=== PATIENT | female | born 1945 | race Caucasian/White ===

== ENCOUNTER 2017-09-04 06:04 | Day surgery (SDC) | payer MEDICARE, MEDICAID ==
[~2017-09-04] VITALS: Ht 144.8 cm; Wt 68.6 kg
[~2017-09-04 06:04] MED LIST: SODIUM CHLORIDE 0.9% 1,000 ML IV ONE
[2017-09-04] MEDS ORDERED: ALBUTEROL SULFATE 2.5 MG/0.5 ML NEB SOLUTION NEB ONE (06:05)
[2017-09-04] MEDS ORDERED: LIDOCAINE HCL 4% 50 ML SOLUTION TP ONE (06:05)
[2017-09-04] MEDS ORDERED: BENZOCAINE 20% 50 MCG/SPRAY 57 GM TP ONE (06:05)
[2017-09-04] MEDS ORDERED: LIDOCAINE HCL 2% 30 ML JELLY TP ONE (06:05)
[2017-09-04] MEDS ORDERED: SODIUM CHLORIDE 0.9% 1,000 ML IV ONE (06:30)
[2017-09-04] MEDS ORDERED: PRED10 PO (07:23)
[2017-09-04] MEDS ORDERED: OXYB5 PO (07:23)
[2017-09-04] MEDS ORDERED: TELM40 PO (07:23)
[2017-09-04] MEDS ORDERED: GABA-531 PO (07:32)
[2017-09-04] MEDS ORDERED: OMEP20 PO (07:32)
[2017-09-04] MEDS ORDERED: AMLO-511 PO (07:32)
[2017-09-04] MEDS ORDERED: SIMV-260 PO (07:32)
[2017-09-04] MEDS ORDERED: FLUT16H NASAL (07:32)
[2017-09-04] MEDS ORDERED: DOXY100C PO (07:32)
[2017-09-04] MEDS ORDERED: OXYM-48 NASAL (07:32)
[2017-09-04] MEDS ORDERED: CITA10TA68 PO (07:32)
[2017-09-04] MEDS ORDERED: MIRA25TA PO (07:32)
[2017-09-04] MEDS ORDERED: MIDAZOLAM HCL 2 MG/2 ML VIAL ONE (07:53)
[2017-09-04] MEDS ORDERED: FentaNYL CITRATE-PF 100 MCG/2 ML VIAL ONE (07:53)
[2017-09-04] MEDS ORDERED: MethylPREDNISolone SOD SUCC 125 MG/2 ML VIAL IVP ONE (08:15)
[2017-09-04] MEDS ORDERED: MethylPREDNISolone SOD SUCC 125 MG/2 ML VIAL ONE (08:33)
[2017-09-04] MEDS ORDERED: OXYGEN THERAPY IH SCH (20:00)
== END 2017-09-04 09:55 | disposition home or self-care (01) ==
LOC: SURGERY 06:04
PROVIDERS: ATTEND Internal Medicine Critical Care Medicine
DX: J38.4 Edema of larynx (principal); B37.0 Candidal stomatitis; J84.111 Idiopathic interstitial pneumonia, not otherwise specified; J43.9 Emphysema, unspecified; J84.89 Other specified interstitial pulmonary diseases; I10 Essential (primary) hypertension; Z79.891 Long term (current) use of opiate analgesic; Z72.89 Other problems related to lifestyle; Z79.2 Long term (current) use of antibiotics; Z79.899 Other long term (current) drug therapy; Z98.890 Other specified postprocedural states
CPT/HCPCS: 31623; 31624; 71045; 87015; 87070; 87077; 87186; 87206; 87220; 88108; 88312; J2250; J2930; J3010; J7030

== ENCOUNTER 2018-08-10 16:54 | Emergency (ER) | payer OTHER ==
[~2018-08-10] VITALS: Ht 142.2 cm; Wt 64.1 kg
[~2018-08-10 16:54] MED LIST changes: +AMLO-511 PO; +CITA10TA68 PO; +DOXY100C PO; +FLUT16H NASAL; +GABA-531 PO; +MIRA25TA PO; +OMEP20 PO; +OXYB5 PO; +OXYM-48 NASAL; +PRED10 PO; +SIMV-260 PO; -SODIUM CHLORIDE 0.9% 1,000 ML IV ONE; +TELM40 PO
[2018-08-10] MEDS ORDERED: MONT10TA21 PO (17:28)
[2018-08-10] MEDS ORDERED: GABA-531 PO (17:28)
[2018-08-10] MEDS ORDERED: ASPI-1182 PO (17:28)
[2018-08-10] MEDS ORDERED: NIFE60TA81 PO (17:28)
[2018-08-10] MEDS ORDERED: IPRA4AER IH (17:28)
[2018-08-10] MEDS ORDERED: HYDR25TA PO (17:28)
[2018-08-10] MEDS ORDERED: ALBU8HFA PO (17:28)
[2018-08-10] MEDS ORDERED: IPRA3AMP24 NEB (17:28)
[2018-08-10] MEDS ORDERED: TELM40 PO (17:28)
[2018-08-10] MEDS ORDERED: ALBUTEROL SULFATE 5 MG/ML 20 ML NEB SOLN [BULK] NEB ONE (18:15)
[2018-08-10] MEDS ORDERED: IPRATROPIUM BROMIDE 0.5 MG/2.5 ML NEB SOLUTION NEB ONE (18:15)
[2018-08-10 18:18] LABS: BASOPHILS % (AUTO) 0.4 % (0.0-2.0); EOSINOPHILS % (AUTO) 0.3 % (1.0-6.0); HEMATOCRIT 33.3 % (36-46); HEMOGLOBIN 11.1 g/dL (12.0-16.0); LYMPHOCYTES # (AUTO) 0.7 K/uL (1.0-4.8); LYMPHOCYTES % (AUTO) 12.9 % (22.0-44.0); MEAN CORPUSCULAR HEMOGLOBIN 30.5 pg (26.0-34.0); MEAN CORPUSCULAR HGB CONC 33.3 G/dL (31.0-37.0); MEAN CORPUSCULAR VOLUME 92 fL (80-100); MONOCYTES # (AUTO) 0.2 K/uL (0.1-1.0); MONOCYTES % (AUTO) 3.6 % (2.0-9.0); NEUTROPHILS # (AUTO) 4.7 K/uL (1.8-7.7); NEUTROPHILS % (AUTO) 82.8 % (40.0-70.0); PLATELET COUNT (AUTO) 293 K/uL (150-450); RED BLOOD CELL COUNT(AUTO) 3.64 MIL/uL (4.00-5.20); RED CELL DISTRIBUTION WIDTH 13.6 % (11.5-14.5)
[2018-08-10 18:30] LABS: ANION GAP 11 mmol/L (8-16); CALCIUM, TOTAL 9.5 mg/dL (8.8-10.5); CARBON DIOXIDE 22 mmol/L (22-29); CHLORIDE 102 mmol/L (98-107); CREATININE 0.79 mg/dL (0.60-1.30); GLUCOSE,RANDOM 136 mg/dL (70-110); SODIUM SERUM 135 mmol/L (136-145); UREA NITROGEN, BLOOD 15 mg/dL (7-18)
[2018-08-10 18:31] LABS: GLOMERULAR FILTR. RATE CALC > 60 mL/min (>60)
[2018-08-10 18:35] LABS: ALANINE AMINOTRANSFERASE 11 U/L (12-78); ALBUMIN 3.8 g/dL (3.4-5.0); ALKALINE PHOSPHATASE 55 U/L (46-116); ASPARTATE AMINOTRANSFERASE 17 U/L (15-37); BILIRUBIN,TOTAL 0.5 mg/dL (0.1-1.0); TOTAL PROTEIN, SERUM 7.7 g/dL (6.4-8.2)
[2018-08-10 18:51] LABS: B-TYPE NATRIURETIC PEPTIDE 22 pg/mL (0-100)
[2018-08-10] MEDS ORDERED: 0.9% SODIUM CHLORIDE 5 ML NEB SOLUTION NEB ONE (20:23)
[2018-08-10 21:11] VITALS: BP 142/65
== END 2018-08-10 21:15 | disposition home or self-care (01) ==
LOC: EMS 16:55
DX: J44.1 Chronic obstructive pulmonary disease with (acute) exacerbation (principal); R42 Dizziness and giddiness; E78.00 Pure hypercholesterolemia, unspecified; I10 Essential (primary) hypertension; M81.0 Age-related osteoporosis without current pathological fracture; Z79.899 Other long term (current) drug therapy
CPT/HCPCS: 94644

== ENCOUNTER 2019-10-14 06:05 | Day surgery (SDC) | payer OTHER ==
[~2019-10-14] VITALS: Ht 154.9 cm; Wt 68.2 kg
[~2019-10-14 06:05] MED LIST changes: +ALBU8HFA PO; -AMLO-511 PO; +ASPI-1111 PO; -CITA10TA68 PO; -DOXY100C PO; -FLUT16H NASAL; +GABA-1181 PO; -GABA-531 PO; +HYDR-1475 PO; +IPRA3AMP24 NEB; +IPRA4AER IH; +MONT10TA21 PO; +NIFE60TA81 PO; -OXYB5 PO; -OXYM-48 NASAL; -PRED10 PO; +SODIUM CHLORIDE 0.9% 1,000 ML ONE
[2019-10-14] MEDS ORDERED: LIDOCAINE 4% 50 ML SOLUTION TP ONE (06:06)
[2019-10-14] MEDS ORDERED: LIDOCAINE 2% 30 ML JELLY TP ONE (06:06)
[2019-10-14] MEDS ORDERED: BENZOCAINE 20% 50 MCG/SPRAY 57 GM TP ONE (06:06)
[2019-10-14] MEDS ORDERED: ALBUTEROL SULFATE 2.5 MG/0.5 ML NEB SOLUTION NEB ONE (06:06)
[2019-10-14] MEDS ORDERED: SODIUM CHLORIDE 0.9% 1,000 ML IV ONE (06:30)
[2019-10-14] MEDS ORDERED: FentaNYL CITRATE-PF 100 MCG/2 ML VIAL ONE (07:56)
[2019-10-14] MEDS ORDERED: MIDAZOLAM HCL 2 MG/2 ML VIAL ONE (07:56)
[2019-10-14] MEDS ORDERED: MethylPREDNISolone SOD SUCC 125 MG/2 ML VIAL IVP ONE (08:45)
[2019-10-14] MEDS ORDERED: MethylPREDNISolone SOD SUCC 125 MG/2 ML VIAL ONE (09:02)
[2019-10-14] MEDS ORDERED: OXYGEN THERAPY IH SCH (20:00)
== END 2019-10-14 10:50 | disposition home or self-care (01) ==
LOC: SURGERY 06:05
PROVIDERS: ATTEND Internal Medicine Critical Care Medicine
DX: R05 Cough (principal); R04.2 Hemoptysis; J47.9 Bronchiectasis, uncomplicated; J34.89 Other specified disorders of nose and nasal sinuses; J38.4 Edema of larynx; B37.0 Candidal stomatitis; Z11.59 Encounter for screening for other viral diseases; J44.9 Chronic obstructive pulmonary disease, unspecified; I10 Essential (primary) hypertension; Z98.890 Other specified postprocedural states; Z72.89 Other problems related to lifestyle; Z79.899 Other long term (current) drug therapy
CPT/HCPCS: 31623; 31624; 71045; 87015; 87070; 87077; 87101; 87186; 87205; 87206; 87220; 87635; J2250; J2930; J3010; J7030; 88108; 88312; J7613; Z7610

== ENCOUNTER → 2021-01-02 | Day surgery (SDC) | payer OTHER ==
[~2021-01-02] VITALS: Ht 152.4 cm; Wt 61.4 kg
[~2021-01-02] MED LIST changes: -ASPI-1111 PO; +ASPI-1444 PO; +FentaNYL CITRATE PF 100 MCG/2 ML VIAL ONE; -HYDR-1475 PO; +HYDR25TA2 PO; +MIDAZOLAM HCL 5 MG/ML VIAL ONE; +MONT-35 PO; -MONT10TA21 PO; +MethylPREDNISolone SOD SUCC 125 MG/2 ML VIAL IVP ONE; +SODIUM CHLORIDE 0.9% 1,000 ML IV ONE
[2021-01-02 07:06] LABS: COVID AG,FIA SOURCE NASOPHARYNGEAL
[2021-01-02 07:59] LABS: GLUCOMETER DEV NAME(LOC) SDS.; GLUCOSE,POINT OF CARE 122 MG/DL (70-110)
== END | disposition home or self-care (01) ==
LOC: SURGERY 06:14
PROVIDERS: ATTEND Internal Medicine Critical Care Medicine
DX: J38.4 Edema of larynx (principal); B37.0 Candidal stomatitis; J45.909 Unspecified asthma, uncomplicated; I10 Essential (primary) hypertension; E11.9 Type 2 diabetes mellitus without complications; Z79.899 Other long term (current) drug therapy; Z98.890 Other specified postprocedural states
CPT/HCPCS: 31623; 31624; 71045; 82962; 87015; 87070; 87077; 87101; 87186; 87205; 87206; 87220; 87426; 88184; 88185; C9803; J2250; J2930; J3010; J7030; 88108; 88312